=== PATIENT | female | born 1990 | race Caucasian/White ===

== ENCOUNTER 2020-03-26 14:04 | Observation (INO) | payer MEDICAID, SELFPAY ==
[2020-03-26 14:06] VITALS: BP 148/86; PULSE 90; RESP 18; TEMP 36.1; O2SAT 98; BMI 26.6
--- NOTE | 2020-03-26 14:26 | ED.DCSUM_ITS ---
History of Present Illness Chief Complaint: Substance Abuse Informant: Patient Narrative: Patient is a 29-year-old previously healthy female who presents to the emergency department to request to detox from opioids. She states she uses approximately 2 g of fentanyl per day. She does use this intravenously. She has gone through withdrawal many times before in the past. He has been through detox programs multiple times this year. She last used around 5:30 AM this morning. She is starting to feel sweaty but otherwise feels okay at this point. She has used marijuana before but denies any other drug use. She denies any issues with alcohol. She does smoke cigarettes. She denies any chest pain, shortness of breath. No abdominal pain. No headaches. Denies any chance of being . Of note she states she has had a significant weight gain over the past few months of 20 pounds unintentionally. Past Medical History - Allergies and Home Meds Allergies/Adverse Reactions: Allergies vancomycin Allergy (Verified 03/26/20 14:08) Rash Prior records reviewed: Yes Past Medical History: None - Family History Maternal Family History: Reports: - - No heart disease Review of Systems All systems negative except as indicated General: Reports: Sweats. Denies: Chills, Fever Eyes: Denies: Visual changes - bilaterally, Diplopia ENT: Denies: Rhinorrhea, Sore throat Cardiovascular: Denies: Chest pain, Palpitations Respiratory: Denies: Dyspnea, Cough, Dyspnea on exertion Gastrointestinal: Denies: Abdominal pain, Nausea, Vomiting, Diarrhea Genitourinary: Denies: Dysuria, Hematuria, Frequency Musculoskeletal: Denies: Back pain, Extremity Pain Skin: Denies: Rash, Wounds Neurological: Denies: Headache, Weakness, Numbness Physical Exam Vital Signs/Narrative: Vital Signs Temp Pulse Resp BP Pulse Ox 03/26/20 14:06 96.9 F L 90 18 148/86 H 98 General: Well nourished, Well developed, No Acute Distress Head: Normocephalic, Atraumatic Eyes: Perrl, EOMI ENT: Moist mucous membranes, No rhinorrhea Neck: Supple, Nontender Cardiovascular: Regular rate, Regular rhythm, No murmurs Respiratory: No distress, CTA bilaterally, Chest nontender Abdomen: Soft, Nontender, Nondistended, Normal bowel sounds Back: Nontender, Normal Inspection Extremities: Nontender, No edema Skin: Normal color, No rash Neurological: Alert, Oriented x3, Cranial nerves II-XII grossly intact, Normal Strength, Normal Sensation Psychological: Normal affect, Normal Mood Diagnostic/Tx/Re-eval - Medical Decision Making Patient presents to the ED to request to detox from opioids. Upon arrival to the emergency department she is in no apparent distress. Vital signs within normal limits. Will check basic lab work and discuss case with hospitalist. Patient's lab work came back with elevated liver enzymes. Her alcohol level is negative. She was positive for methamphetamine. Patient discussed with the hospitalist and they are willing to admit the patient. She otherwise has been stable throughout ED stay. Will bring in for detox at this time. ED Disposition - Plan for ED Patient: Disposition: Acute Care Hospital [facility] Diagnosis: Substance abuse, Transaminitis
[2020-03-26 15:20] LABS: Amphetamine Urine VISTA NEGATIVE (<1000 ng/mL); Barbiturate Urine VISTA NEGATIVE (< 200 ng/mL); Benzodiazepine Urine VISTA NEGATIVE (< 200 ng/mL); Cocaine Urine VISTA NEGATIVE (< 300 ng/mL); Ecstacy Urine VISTA POSITIVE (< 500 ng/mL); Methadone Urine VISTA NEGATIVE (< 300 ng/mL); PCP Urine VISTA NEGATIVE (< 25 ng/mL); THC Urine VISTA NEGATIVE (< 50 ng/mL); Vista UDS pH Range 7
[2020-03-26 15:23] LABS: ALB/GLOB Ratio 0.8 RATIO (0.9-2.4); AST(SGOT) 102 U/L (15-37); Alanine Aminotransfer ALT/SGPT 132 U/L (13-56); Albumin, Serum 4.1 g/dL (3.2-5.0); Alkaline Phosphatase 126 U/L (45-117); Anion Gap 4 (5-15); BUN 6 mg/dL (7-18); BUN/Creat Ratio 9.6 RATIO (10-20); Calcium,Total 9.4 mg/dL (8.5-10.1); Chloride 106 mmol/L (98-107); Creatinine, Serum 0.63 mg/dL (0.55-1.02); EST Glomerular Filtration Rate 117 mL/min (>60); Est Glom Filt Rate - Afr Amer 142 mL/min (>60); Estimated Creatinine Clearance 121.12 ml/min; Glucose 91 mg/dL (74-106); Potassium 4.3 mmol/L (3.5-5.1); Protein, Total 9.1 g/dL (6.4-8.2); Sodium Level 135 mmol/L (136-145)
--- NOTE | 2020-03-26 15:35 | CM.ED ---
SOCIAL WORK Reason for Consult: Substance Abuse- Patient wanting detox from fentanyl Met with patient in room. Introduced role and reason for referral. Education provided on R[facility]. Patient states resides in [place]. Patient states last use of fentanyl was at 5:30a. Patient reports plan for after detox is outpatient services and wishes to start on MAT with Vivitrol. Encouragement and support provided. This worker to contact [facility] upon admission to update on above and room number. Plan: Admit to [facility]AMP Demetri Bernard MSW, [employer]
[2020-03-26 15:52] LABS: Internal QC Validated? YES +Cl - CLEAR BKGD; Pregnancy, Serum, hCG Quali. NEGATIVE Negative
[2020-03-26 15:54] LABS: Absolute Lymphocyte Count 2.61 X10^3/uL (0.83-4.51); Absolute Neutrophil Count 2.6 X10^3/uL (2.0-7.7); Basophil# 0.02 X10^3/uL; Basophil% 0.3 % (0-1); Eosinophil# 0.07 X10^3/uL; Eosinophils% 1.2 % (0-5); Hematocrit 37.4 % (37-47); Hemoglobin 12.8 g/dL (12.0-15.0); Lymphocyte # 2.61 X10^3/ul (4.0); Lymphocyte % 44.1 % (19-41); Mean Corp Hgb Conc 34.2 g/dL (32-36); Mean Corpuscular Hgb 27.1 pg (27.0-32.0); Mean Corpuscular Volume 79.2 fL (81-99); Mean Platelet Vol. 9.8 fl (6.2-12.0); Monocyte# 0.55 X10^3/uL; Monocyte% 9.3 % (0-10); NRBC Flagged by Analyzer 0 % (0-5); Neutrophil # 2.64 X10^3/uL (2.7-7.7); Neutrophil % 44.6 % (47-70); Platelet Count 225 K/mm3 (150-450); RBC Distribution Width CV 14.8 % (11.6-14.6); RBC Distribution Width SD 42.6 fl (35.1-43.9); Red Blood Count 4.72 M/mm3 (4.2-5.4); White Blood Count 5.9 K/mm3 (4.4-11.0)
[2020-03-26 16:15] LABS: Alcohol, Blood (Medical)-Serum < 3.0 mg/dL
[2020-03-26 16:39] VITALS: BP 116/75; PULSE 117; RESP 18; TEMP 36.6; O2SAT 98
[2020-03-26 16:42] VITALS: BMI 26.6
--- NOTE | 2020-03-26 16:55 | HP.PCM_ITS ---
Problem List (1) Substance abuse Status: Acute (2) Transaminitis Status: Acute History of Present Illness Date of Admission: 03/26/20 Chief Complaint: opiate wd treatment The patient is a 29 year old F presents seeking treatment for withdrawal. Patient uses fentanyl. Patient injects fentanyl. Last use was around 5:30 AM. Since then she has been having some tremors. Patient has quit before and has been through programs before. Patient has plans to follow-up with [facility] in [place]. [] Past Medical History Allergies vancomycin Allergy (Verified 03/26/20 14:08) Rash Home Medications: Ambulatory Orders Medication Instructions Recorded NK 03/26/20 Smoking Status: Heavy Smoker (>10/day) Tobacco Use: Cigarettes Alcohol: None Drugs: None - *Family History Maternal History Items: - - No heart disease Review of Systems Constitutional: Denies: Anorexia, Chills, Fever, Night Sweats Eyes: Denies: Blurred vision, Double vision HEENT: Denies: Head Aches, Sinus Congestion, Sinus Drainage Cardiovascular: Denies: Chest Pain, Palpitations Respiratory: Denies: Cough, Shortness of breath at rest, Sputum production Gastrointestinal: Denies: Abdominal Pain, Nausea, Vomiting Genitourinary: Denies: Dysuria Musculoskeletal: Denies: Joint Pain, Joint Tenderness Hematologic/ Lymphatic: Denies: Easy Bruising, Easy Bleeding VTE Information - Inpt Only VTE Present on Admission: No VTE Mechan Device Prophylaxis: None VTE Pharm Prophylaxis ordered?: No Reason prophylaxis not ordered:: Treatment Not Indicated Patient Problems: Active and Suspected Problems Substance abuse (Acute) Transaminitis (Acute) - Physical Exam Vitals/I&O's: Vital Signs Temp Pulse Resp BP Pulse Ox 36.6 C 117 H 18 116/75 98 03/26/20 16:39 03/26/20 16:39 03/26/20 16:39 03/26/20 16:39 03/26/20 16:39 Oxygen Delivery Method Room Air Weight: 74.843 kg Body Mass Index (BMI) 26.6 General: Alert, No apparent distress HEENT: Atraumatic, Normocephalic Oral: Moist Mucosa, No Gingival or Mucosal Lesions/ Ulcerations Neck: No Nodes, Thyroid Normal Size and Texture Lungs: Clear to auscultation, Normal air movement, No rhonchi, No wheeze Cardiovascular: Regular rate, Regular Rhythm, Normal S1, Normal S2, No murmurs Abdomen: Bowel Sounds Present, Soft, Non Tender, Non-Distended, No Hepato- splenomegaly Extremities: No edema, No Calf Tenderness Skin: - - Some track webb noted in the upper extremities but no evidence of any cellulitis, induration nor fluctuance. Psych/Mental Status: Normal Affect, Appropriate Laboratory Results 03/26/20 14:50: Urine Opiates Screen NEGATIVE, Urine Methadone Screen NEGATIVE, Ur Barbiturates Screen NEGATIVE, Ur Phencyclidine Scrn NEGATIVE, Ur Amphetamines Screen NEGATIVE, U Methamphetamin-MDMA POSITIVE H, U Benzodiazepines Scrn NEGATIVE, Urine Cocaine Screen NEGATIVE, U Cannabinoids Screen NEGATIVE, Ur Drug Screen Comment 03/26/20 15:00: WBC Cancelled, Corrected WBC Cancelled, RBC Cancelled, Hgb Cancelled, Hct Cancelled, MCV Cancelled, MCH Cancelled, MCHC Cancelled, RDW Std Deviation Cancelled, RDW Coeff of Nii Cancelled, Plt Count Cancelled, MPV Cancelled, Immature Gran % (Auto) Cancelled, Neut % (Auto) Cancelled, Lymph % (Auto) Cancelled, [place] % (Auto) Cancelled, Eos % (Auto) Cancelled, Baso % (Auto) Cancelled, Absolute Neuts (auto) Cancelled, Absolute Lymphs (auto) Cancelled, Total Counted Cancelled, Neutrophils % (Manual) Cancelled, Band Neutrophils % Cancelled, Lymphocytes % (Manual) Cancelled, Monocytes % (Manual) Cancelled, Eosinophils % (Manual) Cancelled, Basophils % (Manual) Cancelled, Metamyelocytes % Cancelled, Myelocytes % Cancelled, Promyelocytes % Cancelled, Blast Cells % Cancelled, Plasma Cell % (Manual) Cancelled, Other Cells % Cancelled, Nucleated RBC % Cancelled, Nucleated RBCs/100 WBC Cancelled, Differential Comment Cancelled, Diff Path Review Cancelled, Hypersegmented Neuts Cancelled, Atypical Lymphocytes Cancelled, Reactive Lymphocytes Cancelled, Smudge Cells Cancelled, Toxic Granulation Cancelled, Toxic Vacuolation Cancelled, Dohle Bodies Cancelled, Mk Rods Cancelled, Platelet Estimate Cancelled, Plt Morphology Comment Cancelled, RBC Morphology Cancelled, Polychromasia Cancelled, Hypochromasia Cancelled, Poikilocytosis Cancelled, Basophilic Stippling Cancelled, Anisocytosis Cancelled, Microcytosis Cancelled, Macrocytosis Cancelled, Spherocytes Cancelled, Sickle Cells Cancelled, Target Cells Cancelled, Tear Drop Cells Cancelled, Ovalocytes Cancelled, Stomatocytes Cancelled, Sanchez-[place] Bodies Cancelled, Denisha Cells Cancelled, Bite Cells Cancelled, Crenated Cell Cancelled, Acanthocytes (Spur) Cancelled, Rouleaux Cancelled, Schistocytes Cancelled 03/26/20 15:00: Serum , Qual NEGATIVE 03/26/20 15:00: Sodium 135 L, Potassium 4.3, Chloride 106, Carbon Dioxide 25.0, Anion Gap 4 L, BUN 6 L, Creatinine 0.63, Estim Creat Clear Calc 121.12, Est GFR (MDRD) Af Amer 142, Est GFR (MDRD) Non-Af 117, BUN/Creatinine Ratio 9.6 L, Gl ucose 91, Calcium 9.4, Total Bilirubin 1.50 H, AST 102 H, ALT 132 H, Alkaline Phosphatase 126 H, Total Protein 9.1 H, Albumin 4.1, Globulin 5.0 H, Albumin/Globulin Ratio 0.8 L 03/26/20 15:00: Ethyl Alcohol < 3.0 03/26/20 15:45: WBC 5.9, RBC 4.72, Hgb 12.8, Hct 37.4, MCV 79.2 L, MCH 27.1, MCHC 34.2, RDW Std Deviation 42.6, RDW Coeff of Nii 14.8 H, Plt Count 225, MPV 9.8, Immature Gran % (Auto) 0.500, Neut % (Auto) 44.6 L, Lymph % (Auto) 44.1 H, [place] % (Auto) 9.3, Eos % (Auto) 1.2, Baso % (Auto) 0.3, Absolute Neuts (auto) 2.6, Absolute Lymphs (auto) 2.61, Nucleated RBC % 0 Assessment/Plan All Active Problems Substance abuse (Acute) Transaminitis (Acute) 1. Acute opiate withdrawal: * Patient will be started on a buprenorphine taper and have another medications to help with other somatic complaints during the course of her hospitalization. * Patient states that she will follow up with [facility] upon discharge but has not reached out to them prior to arriving here. She said that she will initiate the phone calls after admission. * Patient informed that she would be here through the 26. She is comfortable with that. 2. Nicotine abuse * Nicotine patch 3. VTE prophylaxis: Low risk. Inpatient E&M: 56222 Init Hosp L2
--- NOTE | 2020-03-26 17:30 | PCS.PANDOC ---
PANDEMIC DOCUMENTATION INITIATED: Date: 03/26/2020 Time: 6823
--- NOTE | 2020-03-26 17:39 | CM.ED ---
SOCIAL WORK Call to [facility] Treatment Navigator, Ora. Updated on patient's admission to [facility]. Ora reports Scooby to be in tomorrow to complete assessment. Demetri Bernard, CATH LAB RADIOLOGY TECHNICIAN, [employer]
[2020-03-26 18:41] VITALS: BP 119/74; PULSE 75; RESP 18; TEMP 36.5; O2SAT 96
[2020-03-26 19:40] VITALS: BMI 26.9
[2020-03-27 01:18] VITALS: BP 110/66; PULSE 82; RESP 18; TEMP 36.7; O2SAT 96
[2020-03-27 06:45] VITALS: BP 108/63; PULSE 63; RESP 18; TEMP 36.7; O2SAT 96
[2020-03-27 09:30] VITALS: BP 124/79; PULSE 74; RESP 18; TEMP 36.7; O2SAT 100
--- NOTE | 2020-03-27 09:51 | NURSING ---
pt refusing to complete cows score, states there have been people in here every martinkin 15 minutes, asking me the same fuckin questions and i just want to leavept keo mccauley open to get to her phone and refused to sign AMA paper-charge nurse notified, pt unwilling to discuss that score may now be high enough to start buprenorphine taper i just want to leave pt dc'd AMA
--- NOTE | 2020-03-27 15:04 | DS.PCM_ITS ---
Discharge Date and Diagnosis - Problem List Patient Problems: Active and Suspected Problems Substance abuse (Acute) Transaminitis (Acute) Date of Admission: 03/26/20 Date of Discharge: 03/27/20 - Primary Discharge Diagnosis Acute Problems: Active Problems Substance abuse (Acute) Transaminitis (Acute) Hospital Course and Treatment Operations: None Procedures: None Summary of Care Provided: The patient is a 29 year old F patient presented voluntarily seeking treatment for fentanyl withdrawal. Explained the patient that she would be here for 3days and would be a buprenorphine taper. Patient also told that she would be on other medications to help her other somatic complaints associated with her withdrawal. 1 saw patient on the and patient seems a little distended but expressed no complaints. At some point afterwards, patient made decision to leave AGAINST MEDICAL ADVICE. [] Patient Problems: Active and Suspected Problems Substance abuse (Acute) Transaminitis (Acute) - Physical Exam Vitals/I&O's: Vital Signs Temp Pulse Resp BP Pulse Ox 36.7 C 74 18 124/79 H 100 03/27/20 09:30 03/27/20 09:30 03/27/20 09:30 03/27/20 09:30 03/27/20 09:30 Oxygen Delivery Method Room Air Weight: 75.75 kg Body Mass Index (BMI) 26.9 Intake and Output for Last 24 Hours 03/25/20 03/26/20 03/27/20 23:59 23:59 23:59 Intake Total 540 / 540 Balance 540 / 540 General: Alert, No apparent distress HEENT: Atraumatic, Normocephalic Oral: Moist Mucosa, No Gingival or Mucosal Lesions/ Ulcerations Neck: No Nodes, Thyroid Normal Size and Texture Lungs: Clear to auscultation, Normal air movement, No rhonchi, No wheeze Cardiovascular: Regular rate, Regular Rhythm, Normal S1, Normal S2 Abdomen: Bowel Sounds Present, Soft, Non Tender, Non-Distended Extremities: No edema, No Calf Tenderness Laboratory Results 03/26/20 14:50: Urine Opiates Screen NEGATIVE, Urine Methadone Screen NEGATIVE, Ur Barbiturates Screen NEGATIVE, Ur Phencyclidine Scrn NEGATIVE, Ur Amphetamines Screen NEGATIVE, U Methamphetamin-MDMA POSITIVE H, U Benzodiazepines Scrn NEGATIVE, Urine Cocaine Screen NEGATIVE, U Cannabinoids Screen NEGATIVE 03/26/20 15:00: WBC Cancelled, Corrected WBC Cancelled, RBC Cancelled, Hgb Cancelled, Hct Cancelled, MCV Cancelled, MCH Cancelled, MCHC Cancelled, RDW Std Deviation Cancelled, RDW Coeff of Nii Cancelled, Plt Count Cancelled, MPV Cancelled, Immature Gran % (Auto) Cancelled, Neut % (Auto) Cancelled, Lymph % (Auto) Cancelled, Rock % (Auto) Cancelled, Eos % (Auto) Cancelled, Baso % (Auto) Cancelled, Absolute Neuts (auto) Cancelled, Absolute Lymphs (auto) Cancelled, Total Counted Cancelled, Neutrophils % (Manual) Cancelled, Band Neutrophils % Cancelled, Lymphocytes % (Manual) Cancelled, Monocytes % (Manual) Cancelled, Eosinophils % (Manual) Cancelled, Basophils % (Manual) Cancelled, Metamyelocytes % Cancelled, Myelocytes % Cancelled, Promyelocytes % Cancelled, Blast Cells % Cancelled, Plasma Cell % (Manual) Cancelled, Other Cells % Cancelled, Nucleated RBC % Cancelled, Nucleated RBCs/100 WBC Cancelled, Differential Comment Cancelled, Diff Path Review Cancelled, Hypersegmented Neuts Cancelled, Atypical Lymphocytes Cancelled, Reactive Lymphocytes Cancelled, Smudge Cells Cancelled, Toxic Granulation Cancelled, Toxic Vacuolation Cancelled, Dohle Bodies Cancelled, Mk Rods Cancelled, Platelet Estimate Cancelled, Plt Morphology Comment Cancelled, RBC Morphology Cancelled, Polychromasia Cancelled, Hypochromasia Cancelled, Poikilocytosis Cancelled, Basophilic Stippling Cancelled, Anisocytosis Cancelled, Microcytosis Cancelled, Macrocytosis Cancelled, Spherocytes Cancelled, Sickle Cells Cancelled, Target Cells Cancelled, Tear Drop Cells Cancelled, Ovalocytes Cancelled, Stomatocytes Cancelled, Sanchez[place] Bodies Cancelled, [place] Cells Cancelled, Bite Cells Cancelled, Crenated Cell Cancelled, Acanthocytes (Spur) Cancelled, Rouleaux Cancelled, Schistocytes Cancelled 03/26/20 15:00: Serum , Qual NEGATIVE 03/26/20 15:00: Sodium 135 L, Potassium 4.3, Chloride 106, Carbon Dioxide 25.0, Anion Gap 4 L, BUN 6 L, Creatinine 0.63, Estim Creat Clear Calc 121.12, Est GFR (MDRD) Af Amer 142, Est GFR (MDRD) Non-Af 117, BUN/Creatinine Ratio 9.6 L, Glucose 91, Calcium 9.4, Total Bilirubin 1.50 H, AST 102 H, ALT 132 H, Alkaline Phosphatase 126 H, Total Protein 9.1 H, Albumin 4.1, Globulin 5.0 H, Albumin/Globulin Ratio 0.8 L 03/26/20 15:00: Ethyl Alcohol < 3.0 03/26/20 15:45: WBC 5.9, RBC 4.72, Hgb 12.8, Hct 37.4, MCV 79.2 L, MCH 27.1, MCHC 34.2, RDW Std Deviation 42.6, RDW Coeff of Nii 14.8 H, Plt Count 225, MPV 9.8, Immature Gran % (Auto) 0.500, Neut % (Auto) 44.6 L, Lymph % (Auto) 44.1 H, Rock % (Auto) 9.3, Eos % (Auto) 1.2, Baso % (Auto) 0.3, Absolute Neuts (auto) 2.6, Absolute Lymphs (auto) 2.61, Nucleated RBC % 0 Discharge Diet: No Restrictions Home Medications: Medications to take at Discharge NK 03/26/20 Primary Care Physician: NOT,DEFINED [NON-STAFF] - Disposition: Against Medical Advice Minutes spent on discharge:: 20 Patient Condition:: Stable Medical Necessity - Tobacco Use Smoking Status: Heavy Smoker (>10/day) Tobacco Use: Cigarettes Meaningful Use Info Meaningful Use Diagnoses (Choose all that apply): None applicable OBSV E&M: 68338 Observation care discharge
== END 2020-03-27 09:54 | disposition left against medical advice (07) ==
LOC: ED 16:16 → MS3 03-27 07:31
PROVIDERS: Emergency Provider Emergency Medicine
DX: F11.23 Opioid dependence with withdrawal (principal); F17.210 Nicotine dependence, cigarettes, uncomplicated
CPT/HCPCS: 80053; 80307; 80320; 84703; 85025; 99218; 99283; 99406; G0378; G0480